=== PATIENT | male | born 1975 | race Caucasian/White ===

== ENCOUNTER 2022-04-29 13:40 | Emergency (ER) | payer OTHER ==
[2022-04-29] MEDS ORDERED: Cyclobenzaprine 10 MG TAB ONE (15:21)
[2022-04-29] MEDS ORDERED: Ketorolac Tromethamine 30 MG/ML VIAL ONE (15:21)
[2022-04-29] MEDS ORDERED: Morphine 10 MG/ML VIAL ONE (17:02)
== END 2022-04-29 17:34 | disposition home or self-care (01) ==
LOC: CSHERS 13:40 → EDBD 13:40 → CSHERS 17:34
DX: M54.50 Low back pain, unspecified (principal)
CPT/HCPCS: 96372; 99283; J1885; J2270